=== PATIENT | male | born 1990 | race African-American/Black ===

== ENCOUNTER 2020-11-08 15:33 | Emergency (ER) | payer BC, SELFPAY ==
[2020-11-08 15:41] VITALS: BP 157/72; PULSE 63; RESP 16; TEMP 36.7; O2SAT 99
--- NOTE | 2020-11-08 16:06 | ED.GENADULT ---
HPI - General Adult History of Present Illness HPI narrative: 30 yo male presents to the ED with chief complaint of itching. He reports that while at work today he got some fiberglass on his chest. Since that time he has developed itching and irritation of the skin. He has showered and changed his clothes. No rash. No other symptoms. Related Data Allergies Allergy/AdvReac Type Severity Reaction Status Date / Time No Known Allergies Allergy Verified 11/08/20 16:08 Review of Systems Review of Systems: All systems reviewed & are unremarkable except as noted in HPI and below [facility] Social History Social History (Updated 11/16/20 @ 13:51 by Bandar Seay MD) Smoking status: Never smoker Exam Const: General: healthy appearing, no acute distress and alert Orientation/consciousness: patient oriented x3 HENMT: Head: normal to inspection Neck: Neck: normal visual inspection and no lymphadenopathy Chest: Chest palpation & inspection: no tenderness Resp: Effort & Inspection: normal respiratory effort Auscultation: clear to auscultation bilaterally, no rales, no rhonchi and no wheezes Cardio: Jugular venous distension: no JVD Rate: regular rate Rhythm: regular rhythm Heart sounds: no murmurs GI: Inspection: non-distended GI Palp: Yes Soft to palpation and No Tenderness to palpation present (GI) Skin: General skin exam: normal color Rashes: no rashes Neuro: General: patient oriented x3 and moves all extremities Speech: normal speech Extrem: General: no edema Psych: Appearance: well kempt Affect: normal affect Course Vital Signs Vital signs: Vital Signs Temperature 36.7 C 11/08/20 15:41 Pulse Rate 63 11/08/20 15:41 Respiratory Rate 16 11/08/20 15:41 Blood Pressure 157/72 H 11/08/20 15:41 Pulse Oximetry 99 11/08/20 15:41 Temperature 36.7 C 11/08/20 15:41 Pulse Rate 63 11/08/20 15:41 Respiratory Rate 16 11/08/20 15:41 Blood Pressure 157/72 H 11/08/20 15:41 Pulse Oximetry 99 11/08/20 15:41 Medical Decision Making MDM Narrative Medical decision making narrative: No significant findings on exam. I will prescribe a short course of steroids, which hopefully will provide some symptomatic relief while to fibers work their way out. Medical Records Medical records reviewed: Yes I reviewed the external patient's medical records. Vital Signs Vital Signs: Vital Signs Temperature 36.7 C 11/08/20 15:41 Pulse Rate 63 11/08/20 15:41 Respiratory Rate 16 11/08/20 15:41 Blood Pressure 157/72 H 11/08/20 15:41 Pulse Oximetry 99 11/08/20 15:41 Temperature 36.7 C 11/08/20 15:41 Pulse Rate 63 11/08/20 15:41 Respiratory Rate 16 11/08/20 15:41 Blood Pressure 157/72 H 11/08/20 15:41 Pulse Oximetry 99 11/08/20 15:41 Discharge Plan Discharge Clinical Impression: Contact dermatitis Patient Disposition: Home, Self-Care Condition: Stable Instructions: Contact Dermatitis (ED) Prescriptions: New prednisone 20 mg tablet 20 mg PO DAILY Qty: 5 RF: 0 Follow-up/Referrals: PHYSICIAN NOT ON STAFF,NONSTAFF [Primary Care Provider] - Stand Alone Forms: Work/School Release IP
[2020-11-08] MEDS: predniSONE 20 MG TABLET PO (16:40)
[2020-11-08] MEDS: LORATADINE 10 MG TABLET PO (16:40)
== END 2020-11-08 17:13 | disposition home or self-care (01) ==
PROVIDERS: Emergency Provider Emergency Medicine
DX: L25.9 Unspecified contact dermatitis, unspecified cause (principal)
CPT/HCPCS: 99283; A9270; J7512

== ENCOUNTER 2021-01-30 17:07 | Emergency (ER) | payer MEDICAID, SELFPAY ==
--- NOTE | ~2021-01-30 | XR_ITS ---
XR chest 2V DATE: 01/30/2021 18:31 INDICATION: Cough, congestion TECHNIQUE: PA and lateral views COMPARISON: None FINDINGS: Heart size is normal. No hilar or mediastinal enlargement. No pulmonary infiltrate or conso lidation, pleural effusion or pulmonary vascular congestion or pneumothorax. Included skeletal structures are unremarkable. IMPRESSION: Negative chest Reviewed, dictated and finalized at location A. IMPRESSION: Negative chest
[2021-01-30 17:19] VITALS: BP 145/80; PULSE 63; RESP 16; TEMP 36.2; O2SAT 99
--- NOTE | 2021-01-30 18:47 | ED.GENADULT ---
HPI - General Adult General Chief complaint: Upper Respiratory Infection Stated complaint: COLD Source: patient and RN notes reviewed History of Present Illness HPI narrative: Patient is a 30 y/o male complaining of mild to moderate cough for last 3 days. He states that he is coughing up some mucus. There is no known alleviating or exacerbating factor. He took Mucinex, which did not seem to help. He also has a running nose. He has no fever. He states that he was told by his work that he needs a COVID test. Related Data Allergies Allergy/AdvReac Type Severity Reaction Status Date / Time No Known Allergies Allergy Verified 01/30/21 17:47 Review of Systems Constitutional: Constitutional: Denies chills, Denies fever(s), Denies headache(s) and Denies weakness Eyes: Eyes: Denies blurry vision ENT: Denies headache(s), Reports nasal discharge and Denies neck pain Cardiovascular: Cardiovascular: Denies chest pain and Denies dyspnea Respiratory: Respiratory: Reports cough and Denies dyspnea Gastrointestinal: Gastrointestinal: Denies abdominal pain, Denies diarrhea, Denies nausea and Denies vomiting Genitourinary: Genitourinary: Denies hematuria and Denies dysuria Musculoskeletal: Musculoskeletal: Denies back pain and Denies neck pain Neurologic: Denies headache(s) and Denies weakness [facility] Social History Social History Smoking status: Never smoker Exam Const: General: no acute distress and well developed Orientation/consciousness: oriented to person, oriented to place, oriented to time and patient oriented x3 HENMT: Head: normocephalic Ears: external ears normal General nose exam: Normal external nose present Eyes: General: appearance normal, both eyes and all related structures Conjunctivae: conjunctivae normal Neck: Neck: normal visual inspection and full ROM Chest: Chest palpation & inspection: normal inspection of the chest and no tenderness Resp: Effort & Inspection: normal respiratory effort Auscultation: clear to auscultation bilaterally Cardio: Rate: regular rate Rhythm: regular rhythm GI: GI Palp: No abdominal tenderness and Yes Soft to palpation Skin: General skin exam: normal color and turgor normal Neuro: General: oriented to person, oriented to place, oriented to time and patient oriented x3 Cognition (Neuro): normal cognition Extrem: General: normal to inspection, full ROM and no pedal edema Psych: Appearance: grossly normal Mental Status: mental status grossly normal Affect: normal affect Course Vital Signs Vital signs: Vital Signs Temperature 36.2 C L 01/30/21 17:19 Pulse Rate 63 01/30/21 17:19 Respiratory Rate 16 01/30/21 17:19 Blood Pressure 145/80 H 01/30/21 17:19 Pulse Oximetry 99 01/30/21 17:19 Temperature 36.2 C L 01/30/21 17:19 Pulse Rate 66 01/30/21 19:55 Respiratory Rate 16 01/30/21 19:55 Blood Pressure 122/63 01/30/21 19:55 Pulse Oximetry 99 01/30/21 19:55 Medical Decision Making Vital Signs Vital Signs: Vital Signs Temperature 36.2 C L 01/30/21 17:19 Pulse Rate 63 01/30/21 17:19 Respiratory Rate 16 01/30/21 17:19 Blood Pressure 145/80 H 01/30/21 17:19 Pulse Oximetry 99 01/30/21 17:19 Temperature 36.2 C L 01/30/21 17:19 Pulse Rate 66 01/30/21 19:55 Respiratory Rate 16 01/30/21 19:55 Blood Pressure 122/63 01/30/21 19:55 Pulse Oximetry 99 01/30/21 19:55 Lab Data Result diagrams: 01/30/21 18:53 01/30/21 18:53 Labs: Lab Results 01/30/21 01/30/21 01/30/21 Range/Units 18:53 18:53 19:50 WBC 8.8 (4.5-10.0) K/mm3 RBC 5.21 (4.6-6.20) M/mm3 Hgb 16.4 (14.0-18.0) g/dL Hct 47.2 (42.0-52.0) % MCV 90.6 (80-100) fl MCH 31.5 (26-34) pg MCHC 34.7 (32-36) g/dl RDW 13.0 (11.5-14.5) % Plt Count 276 (150-375) k/mm3 MPV 9.8 (7.4-10.4) fl Immature Gran % (Auto) 0.2
[2021-01-30 19:02] LABS: Basophils Absolute Auto 0.1 K/mm3 (0.0-0.1); Basophils Percent Auto 0.6 % (0.2-1.2); Eosinophils Absolute Auto 0.2 K/mm3 (0-0.3); Eosinophils Percent Auto 2.2 % (0-4.4); Hematocrit 47.2 % (42.0-52.0); Hemoglobin 16.4 g/dL (14.0-18.0); Immature Granulocyte Absolute 0.02 K/mm3 (0.00-0.031); Immature Granulocyte Percent A 0.2 % (0-0.5); Lymphocytes Absolute Auto 2.25 K/mm3 (0.9-3.2); Lymphocytes Percent Auto 25.5 % (18.3-44.2); Mean Corpuscular HGB Conc 34.7 g/dl (32-36); Mean Corpuscular Hemoglobin 31.5 pg (26-34); Mean Corpuscular Volume 90.6 fl (80-100); Mean Platelet Volume 9.8 fl (7.4-10.4); Monocytes Absolute Auto 0.9 K/mm3 (0.1-0.6); Monocytes Percent Auto 9.8 % (2.6-8.5); Neutrophils Absolute Auto 5.5 K/mm3 (1.3-6.7); Neutrophils Percent Auto 61.7 % (45.5-73.1); Platelet Count Result 276 k/mm3 (150-375); Red Blood Count 5.21 M/mm3 (4.6-6.20); White Blood Count 8.8 K/mm3 (4.5-10.0)
--- NOTE | 2021-01-30 19:20 | PC.NURSE ---
assumed care of patient waiting lab results
[2021-01-30 19:24] LABS: Alanine Aminotransferase 67 U/L (4-50); Alkaline Phosphatase 67 U/L (38-126); Anion Gap 11 mmol/L (8-16); Aspartate Amino Transferase 45 U/L (17-59); Bilirubin,Total 0.8 mg/dL (0.2-1.3); Blood Urea Nitrogen 14 mg/dL (9-20); Calcium 10.5 mg/dL (8.4-10.2); Carbon Dioxide 29 mmol/L (22-30); Chloride 104 mmol/L (98-107); Estimated CRCL calculation 89 ml/min; Estimated Glomerular Filt Rate > 60; Glucose 96 mg/dL (65-110); Potassium 4.2 mmol/L (3.4-5.0); Sodium 144 mmol/L (137-145)
[2021-01-30 19:30] LABS: Albumin Level 5.3 g/dL (3.5-5.1)
[2021-01-30 19:55] VITALS: BP 122/63; PULSE 66; RESP 16; O2SAT 99
[2021-01-31 17:30] LABS: SARS-CoV-2 RNA PCR Negative
== END 2021-01-30 19:58 | disposition home or self-care (01) ==
PROVIDERS: Emergency Provider Emergency Medicine
DX: Z20.822 Contact with and (suspected) exposure to COVID-19 (principal); J06.9 Acute upper respiratory infection, unspecified
CPT/HCPCS: 36415; 71046; 80053; 85025; 99283; C9803; U0003; U0005

== ENCOUNTER 2023-03-29 17:36 | Emergency (ER) | payer BC, MEDICAID, SELFPAY ==
[2023-03-29 18:04] VITALS: BP 134/85; PULSE 92; RESP 20; TEMP 37.7; O2SAT 98
[2023-03-29 18:45] LABS: Influenza A QL RT-PCR Negative (Negative); Influenza B QL RT-PCR Positive (Negative); RSV RNA, RT-PCR Negative (Negative); SARS-CoV-2 RNA PCR Negative (Negative)
--- NOTE | 2023-03-29 20:44 | ED.URI ---
HPI - URI/Sore Throat General Chief Complaint: Upper Respiratory Infection Stated Complaint: body aches, chills, cold symptoms Time Seen by Provider: 03/29/23 19:53 History of Present Illness HPI Narrative: Patient is a 32-year-old male presenting with body aches, cough. Patient states that the for last several days he has had diffuse body aches, chills, cough. He has had a sore throat as well. He has had decreased appetite but no vomiting. No chest pain or abdominal pain. No shortness of breath or leg swelling. States that he has been using Tylenol, ibuprofen, Mucinex with minimal relief. Related Data Allergies Allergy/AdvReac Type Severity Reaction Status Date / Time No Known Allergies Allergy Verified 01/30/21 17:47 Review of Systems Review of Systems: All systems reviewed & are unremarkable except as noted in HPI and below PMFSH Social History Social History Smoking status: Never smoker Exam Narrative: GENERAL: Uncomfortable appearing but nontoxic, pleasant and cooperative HEAD: Normocephalic, atraumatic. EYES: PERRLA and EOMI. ENT: Mucous membranes moist, posterior pharynx is erythematous, no exudates, uvula is midline, no tonsillar hypertrophy. NECK: Supple. CHEST: Clear to auscultation. No respiratory distress. HEART: Regular rate and rhythm. ABDOMEN: Soft, nontender, nondistended EXTREMITIES: Normal range of motion. No edema. SKIN: Warm, dry, no rash. NEURO: Alert and oriented x3. PSYCH: Normal mood and affect. Course Vital Signs Vital signs: Vital Signs Temperature 99.9 F H 03/29/23 18:04 Pulse Rate 92 03/29/23 18:04 Respiratory Rate 20 03/29/23 18:04 Blood Pressure 134/85 03/29/23 18:04 Pulse Oximetry 98 03/29/23 18:04 Temperature 99.9 F H 03/29/23 18:04 Pulse Rate 98 03/29/23 21:13 Respiratory Rate 20 03/29/23 21:13 Blood Pressure 138/78 03/29/23 21:13 Pulse Oximetry 98 03/29/23 21:13 MDM - URI/Sore Throat MDM Narrative Medical decision making narrative: patient is a 32-year-old male presenting with URI symptoms. vitals within normal limits. Exam remarkable for the above. Patient is positive for influenza B. discussed appropriate supportive care with adequate hydration, Tylenol, ibuprofen. Advised PCP follow-up. Appropriate return precautions given. Discharged in stable condition. Differential Diagnosis Differential diagnosis: Likely upper respiratory infection, viral infection, influenza and pharyngitis Lab Data Attestation: I reviewed the patient's lab results. Labs: Lab Results 03/29/23 Range/Units 18:04 Influenza A (RT-PCR) Negative (Negative) Influenza B (RT-PCR) Positive A (Negative) RSV (RT-PCR) Negative (Negative) SARS-CoV-2 RNA (RT-PCR) Negative (Negative) Critical Care Time Critical Care Time Critical Care Time: No Discharge Plan Discharge Clinical Impression: Influenza Patient Disposition: Home, Self-Care Condition: Stable Instructions: Antibiotic Form, Influenza (ED) Additional Instructions: You are positive for influenza B today. Please use Tylenol and ibuprofen for pain control and fevers. Please make sure to drink plenty of fluids to maintain hydration. Please follow-up with primary care. If your symptoms worsen or other concerning symptoms arise, please return to the ER. Prescriptions: New acetaminophen [Tylenol Extra Strength] 500 mg tablet 1,000 mg PO Q6H PRN (Reason: fever or pain) Qty: 60 0RF ibuprofen 800 mg tablet 800 mg PO TID PRN (Reason: pain) Qty: 30 0RF No Action prednisone 20 mg tablet 20 mg PO DAILY Qty: 5 0RF Follow-up/Referrals: Devan Blanco MD [Physician] - Stand Alone Forms: Work/School Release IP
[2023-03-29] MEDS: KETOROLAC 30 MG/ML VIAL (*BKC) IM (20:54)
[2023-03-29 21:13] VITALS: BP 138/78; PULSE 98; RESP 20; O2SAT 98
== END 2023-03-29 21:14 | disposition home or self-care (01) ==
PROVIDERS: Emergency Provider Emergency Medicine
DX: J10.1 Influenza due to other identified influenza virus with other respiratory manifestations (principal); Z20.822 Contact with and (suspected) exposure to COVID-19
CPT/HCPCS: 87637; 96372; 99283; J1885

== ENCOUNTER 2024-04-12 16:18 | Outpatient (CLI) | payer BC, SELFPAY ==
[2024-04-12 17:24] LABS: Basophils Percent Auto 0.1 % (0.2-1.2); Eosinophils Absolute Auto 0.1 K/mm3 (0-0.3); Eosinophils Percent Auto 0.5 % (0-4.4); Hematocrit 48.4 % (42.0-52.0); Immature Granulocyte Absolute 0.05 K/mm3 (0.00-0.031); Immature Granulocyte Percent A 0.5 % (0-0.5); Lymphocytes Absolute Auto 1.74 K/mm3 (0.9-3.2); Lymphocytes Percent Auto 16.3 % (18.3-44.2); Mean Corpuscular HGB Conc 33.1 g/dl (32-36); Mean Corpuscular Volume 90.8 fl (80-100); Mean Platelet Volume 10.3 fl (7.4-10.4); Monocytes Absolute Auto 0.9 K/mm3 (0.1-0.6); Neutrophils Percent Auto 74.6 % (45.5-73.1); Platelet Count Result 279 k/mm3 (150-375); Red Blood Count 5.33 M/mm3 (4.6-6.20); Red Cell Distribution Width 13.6 % (11.5-14.5); White Blood Count 10.7 K/mm3 (4.5-10.0)
[2024-04-12 17:34] LABS: Alanine Aminotransferase 59 U/L (6-50); Albumin Level 5.1 g/dL (3.5-5.1); Alkaline Phosphatase 66 U/L (38-126); Anion Gap 7 mmol/L (4-12); Aspartate Amino Transferase 40 U/L (17-59); Bilirubin,Total 1.1 mg/dL (0.2-1.3); Blood Urea Nitrogen 18 mg/dL (9-20); Carbon Dioxide 30 mmol/L (22-30); Chloride 104 mmol/L (98-107); Cholesterol 231 mg/dL (0-200); Estimated Glomerular Filt Rate > 60; Glucose 102 mg/dL (65-110); HDL Direct 54 mg/dL; Potassium 4.2 mmol/L (3.4-5.0); Sodium 141 mmol/L (137-145); Triglycerides 89 mg/dL (<150)
[2024-04-12 17:45] LABS: Add Urine Microscopic? YES; Appearance Urine Clear (Clear); Bacteria Urine None Seen /hpf; Bilirubin Urine Negative (Negative); Blood Urine Negative (Negative); Color Urine Dark Yellow (Yellow); Glucose Urine UA Negative (Negative); Hyaline Casts Urine Present /lpf; Ketones Urine 1+ mg/dL (Negative); Leukocyte Esterase Ur Negative LEU/UL (Negative); Nitrate Urine Negative (Negative); Protein Urine Trace mg/dL (Negative); RBC Urine 0-2 /hpf (0-2); Specific Grav Ur 1.035 (1.001-1.035); Squamous Epithelial Cell Urine None Seen /hpf (Few); WBC Urine 0-5 /hpf (0-3)
[2024-04-12 17:46] LABS: LDL Cholesterol Direct 141 mg/dL
== END 2024-04-12 16:19 | disposition home or self-care (01) ==
LOC: ANHLAB 16:22
PROVIDERS: Visit Provider Nurse Practitioner
DX: Z00.00 Encounter for general adult medical examination without abnormal findings (principal); Z13.21 Encounter for screening for nutritional disorder; Z83.3 Family history of diabetes mellitus; F32.9 Major depressive disorder, single episode, unspecified; R53.81 Other malaise; M25.561 Pain in right knee
CPT/HCPCS: 36415; 80053; 80061; 81001; 83036; 84443; 85025

== ENCOUNTER 2024-05-01 17:55 | Emergency (ER) | payer BC, SELFPAY ==
[2024-05-01 17:57] VITALS: BP 145/70; PULSE 95; RESP 20; TEMP 37.2; O2SAT 100
--- OUTSIDE RECORDS SUMMARY | 2024-05-01 17:57 | XMS_ITS | CONTINUITY OF CARE DOCUMENT ---
Author Name beverly paul Address Unknown Organization [facility] Address [address] [place] [address] Phone [phone] Care Team Providers Care Transportation Aid Name Role Phone Wicho Painter MD Unavailable [phone] Wicho Painter MD Unavailable [phone] INSURANCE PROVIDERS Payer name Policy type / Coverage type [place] red constitution party ID [facility] Medicaid [id number]
--- OUTSIDE RECORDS SUMMARY | 2024-05-01 17:57 | XMS_ITS | Continuity of Care Document ---
Author Organization [facility] Address [address] [place] [address] [place] [address] Phone Care Team Providers Care Vegetable Harvest Machine Operator Name Role Phone Devon Padilla MD Unavailable Unavailable Advance Directives Directive Yes / No Effective Date File Name No Information Encounters Encounter Description Practice Location Reason(s) For Visit Diagnoses Date Provider Providers Copied on Encounter [facility], [address] [place], [id number], [place] tel:[phone] [facility] No Information Randy Osorio. [address], [id number], [place]. tel:[phone] Family History Family Member Type Diagnosis Age At Onset No Information Payers Payer name Insurance type Covered democrat ID Authoriza tion(s) No Information Social History Type Description Quantity Date Captured Comments Sex Male Smoking Status No Information Chief Complaint And Reason For Visit No Information Plan Of Treatment Date Type Action Status No Information History Of Present Illness Encounter Date Complaint History Of Prese nt Illness No Information Instructions Date Instruction Additional Infor mation No Information Assessments Type Assessment Date No Information
--- OUTSIDE RECORDS SUMMARY | 2024-05-01 18:24 | XMS_ITS | Continuity of Care Document ---
Author Organization [facility] Address [address] [place] [address] Phone Care Team Providers Care Administrative Support Coordinator Name Role Phone Devon Padilla MD Unavailable Unavailable Advance Directives Directive Yes / No Effective Date File Name No Information Encounters Encounter Description Practice Location Reason(s) For Visit Diagnoses Date Provider Providers Copied on Encounter [facility], [address] [place], [id number], [place] tel:[phone] [facility] No Information Randy Osorio. [address] [place], [id number], [place]. tel:[phone] Family History Family Member Type Diagnosis Age At Onset No Information Payers Payer name Insurance type Covered green party ID Authoriza tion(s) No Information Social History [...]
--- OUTSIDE RECORDS SUMMARY | 2024-05-01 18:24 | XMS_ITS | CONTINUITY OF CARE DOCUMENT ---
Author Name beverly paul Address Unknown Organization [facility] Address [address] [place] [address] Phone [phone] Care Team Providers Care Snow Remover Name Role Phone Wicho Painter MD Unavailable [phone] Wicho Painter MD Unavailable [phone] INSURANCE PROVIDERS Payer name Policy type / Coverage type [place] red libertarian ID [facility] Medicaid [id number]
[2024-05-01 18:50] LABS: Influenza A QL RT-PCR Positive (Negative); Influenza B QL RT-PCR Negative (Negative); RSV RNA, RT-PCR Negative (Negative); SARS-CoV-2 RNA PCR Negative (Negative)
--- NOTE | 2024-05-01 19:15 | ED_ITS ---
HPI - URI/Sore Throat General Chief Complaint: Upper Respiratory Infection Stated Complaint: COUGH,CONGESTION,BODY ACHES Time Seen by Provider: 05/01/24 18:15 Source: patient Mode of arrival: ambulatory Limitations: no limitations History of Present Illness HPI Narrative: This is a 33 year old male that presents to the emergency department for cold symptoms. Present over the last couple of days. Reports fever, cough, congestion, myalgias. Related Data Allergies Allergy/AdvReac Type Severity Reaction Status Date / Time No Known Allergies Allergy Verified 05/01/24 17:56 Review of Systems Review of Systems: CONSTITUTIONAL: Reports fever ENT: Reports rhinorrhea, congestion, sore throat CARDIOVASCULAR: Denies chest pain RESPIRATORY: Reports cough All systems reviewed & are unremarkable except as noted in HPI and below PMFSH Past Medical History Medical History (Updated 05/01/24 @ 19:22 by Sofi Mcconnell PA-C) No active medical problems Social History Social History Smoking status: Never smoker Exam Narrative: GENERAL: Well-appearing, well-nourished, and in no acute distress. HEAD: Normocephalic, atraumatic. EYES: EOMI. ENT: Nares clear, no rhinorrhea or epistaxis. Mucous membranes moist. Oropharynx without tonsillar hypertrophy exudate or other lesions. Bilateral TMs pearly sherman non-bulging NECK: Supple. No adenopathy or masses. CHEST: Clear to auscultation. No respiratory distress. No wheezes rales or rhonchi HEART: Regular rate and rhythm. No murmur heard. Normal peripheral pulses. EXTREMITIES: Normal range of motion. No edema. SKIN: Warm, dry, no rash. NEURO: No focal deficits. Alert and oriented x3. PSYCH: Normal mood and affect Course Course Emergency Course: Patient updated on his workup and agrees with plan of care Vital Signs Vital signs: Vital Signs Temperature 99 F 05/01/24 17:57 Pulse Rate 95 05/01/24 17:57 Respiratory Rate 20 05/01/24 17:57 Blood Pressure 145/70 H 05/01/24 17:57 Pulse Oximetry 100 05/01/24 17:57 Oxygen Delivery Room Air 05/01/24 17:57 Temperature 99 F 05/01/24 17:57 Pulse Rate 95 05/01/24 17:57 Respiratory Rate 20 05/01/24 17:57 Blood Pressure 145/70 H 05/01/24 17:57 Pulse Oximetry 100 05/01/24 17:57 Oxygen Delivery Room Air 05/01/24 17:57 MDM - URI/Sore Throat MDM Narrative Medical decision making narrative: Patient presents to the emergency department for cold symptoms present over the last several days. Patient is afebrile and nontoxic appearing. Lungs are clear on exam. Oxygen saturation 100% on room air. Patient is influenza A positive. Will be started on Tamiflu. He was given warnings to return to the ER Differential Diagnosis Differential diagnosis: Likely upper respiratory infection, viral infection, bronchitis, influenza and other (covid) Lab Data Attestation: I reviewed the patient's lab results. Labs: Lab Results 05/01/24 Range/Units 18:08 Influenza A (RT-PCR) Positive A (Negative) Influenza B (RT-PCR) Negative (Negative) RSV (RT-PCR) Negative (Negative) SARS-CoV-2 RNA (RT-PCR) Negative (Negative) Critical Care Time Critical Care Time Critical Care Time: No Discharge Plan Discharge Clinical Impression: Influenza A Patient Disposition: Home, Self-Care Condition: Stable Instructions: Influenza (ED) Additional Instructions: Return to the emergency department for worsening symptoms, or any other concerns Remain well-hydrated, get plenty of rest. Take Tylenol or Motrin [id number] for pain as needed. Flonase for nasal congestion. Zyrtec for runny nose. Lozenges or Chloraseptic spray for sore throat. Take Oseltamivir as prescribed Follow up with primary care doctor Patient Language: Bolivian Prescriptions: New oseltamivir 75 mg capsule 75 mg PO Q12H 5 Days Qty: 10 0RF No Action prednisone 20 mg tablet 20 mg PO DAILY Qty: 5 0RF acetaminophen [Tylenol Extra Strength] 500 mg tablet 1,000 mg PO Q6H PRN (Reason: fever or pain) Qty: 60 0RF ibuprofen 800 mg tablet 800 mg PO TID PRN (Reason: pain) Qty: 30 0RF Follow-up/Referrals: Devan Blanco MD [Physician] -
--- NOTE | 2024-05-01 19:15 | PC.NURSE ---
Report received from MOMO Barnes. Assumed care of patient at this time.
[2024-05-01] MEDS: IBUPROFEN 600 MG TABLET PO (19:26)
== END 2024-05-01 19:30 | disposition home or self-care (01) ==
PROVIDERS: Emergency Provider Physician Assistant
DX: J10.1 Influenza due to other identified influenza virus with other respiratory manifestations (principal); Z20.822 Contact with and (suspected) exposure to COVID-19
CPT/HCPCS: 87637; 99283; A9270

== ENCOUNTER 2024-09-22 05:49 | Emergency (ER) | payer SELFPAY ==
[2024-09-22 05:52] VITALS: BP 151/75; PULSE 57; RESP 16; TEMP 36.2; O2SAT 97
[2024-09-22 05:56] VITALS: BP 151/75; PULSE 62; RESP 16; O2SAT 100
[2024-09-22 06:01] VITALS: BP 138/81; PULSE 65; RESP 22; O2SAT 100
--- NOTE | 2024-09-22 06:12 | ED.GENADULT ---
HPI - General Adult General Chief complaint: Back Pain/Injury Stated complaint: back pain Time Seen by Provider: 09/22/24 06:05 History of Present Illness HPI narrative: 34-year-old male present to the emergency department for evaluation for lower back pain. Patient states that he was pushing a metal beam at work when he felt a pinch in his back. Patient states he was not lifting anything. Patient denies any numbness or weakness, denies any change in bowel or bladder habits. Patient has not take anything for pain control. Patient was having back pain yesterday got ready to go to work today was still having back pain. Patient called work in they told needed to be evaluated. Related Data Allergies Allergy/AdvReac Type Severity Reaction Status Date / Time No Known Allergies Allergy Verified 09/22/24 05:56 Review of Systems Review of Systems: All systems reviewed & are unremarkable except as noted in HPI and below PMFSH Past Medical History Medical History (Updated 09/22/24 @ 06:13 by Jovanny Lugo MD) No active medical problems Social History Social History Smoking status: Never smoker Exam Narrative: APPEARANCE: Well appearing, no pain, no distress, well-nourished. HEAD: normocephalic, atraumatic. EYES: PERRLA/EOMI, conjunctivae clear. NOSE: Normal no drainage EARS:TMS clear with good light reflex. THROAT: Pharynx clear, no exudate. NECK: Supple. No adenopathy, no masses. RESPIRATORY: Airway patent, respirations nonlabored. Clear to auscultation bilaterally, no rales, rhonchi, wheezing. CARDIOVASCULAR: Regular rate and rhythm without murmurs rubs or gallops. ABDOMINAL: Soft, nontender, nondistended, normal bowel sounds MUSCULOSKELETAL: Bilateral paraspinal tenderness to palpation, no midline tenderness to palpation NEURO: Alert. Cranial nerves II through XII intact. Good gait. Good coordination SKIN: Warm, dry. Normal Color Course Vital Signs Vital signs: Vital Signs Temperature 97.2 F L 09/22/24 05:52 Pulse Rate 57 L 09/22/24 05:52 Respiratory Rate 16 09/22/24 05:52 Blood Pressure 151/75 H 09/22/24 05:52 Pulse Oximetry 97 09/22/24 05:52 Oxygen Delivery Room Air 09/22/24 05:52 Temperature 98.6 F 09/22/24 06:33 Pulse Rate 62 09/22/24 06:33 Respiratory Rate 20 09/22/24 06:33 Blood Pressure 142/82 H 09/22/24 06:33 Pulse Oximetry 100 09/22/24 06:33 Oxygen Delivery Room Air 09/22/24 05:52 Medical Decision Making MDM Narrative Medical decision making narrative: [age] old male presenting to the emergency department for evaluation for muscular back pain. Patient has no neurologic symptoms. Patient was provided medication for pain control. Patient was also requesting a work note. Differential Diagnosis Differential Diagnosis: Muscular strain, back fracture cauda equinus syndrome Vital Signs Vital Signs: Vital Signs Temperature 97.2 F L 09/22/24 05:52 Pulse Rate 57 L 09/22/24 05:52 Respiratory Rate 16 09/22/24 05:52 Blood Pressure 151/75 H 09/22/24 05:52 Pulse Oximetry 97 09/22/24 05:52 Oxygen Delivery Room Air 09/22/24 05:52 Temperature 98.6 F 09/22/24 06:33 Pulse Rate 62 09/22/24 06:33 Respiratory Rate 20 09/22/24 06:33 Blood Pressure 142/82 H 09/22/24 06:33 Pulse Oximetry 100 09/22/24 06:33 Oxygen Delivery Room Air 09/22/24 05:52 Discharge Plan Discharge Clinical Impression: Back pain Patient Disposition: Home Condition: Stable Instructions: Antibiotic Form, Back Pain (ED) Additional Instructions: Scheduled ibuprofen for pain control. Flexeril for muscle spasm. Erin as needed for additional pain control. Have close follow-up with your primary care physician. 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
[2024-09-22 06:16] VITALS: BP 142/82; PULSE 69; RESP 18; O2SAT 100
[2024-09-22] MEDS: CYCLOBENZAPRINE HCL 10 MG TABLET PO (06:19)
[2024-09-22] MEDS: KETOROLAC 30 MG/ML VIAL (*BKC) IM (06:21)
[2024-09-22 06:33] VITALS: BP 142/82; PULSE 62; RESP 20; TEMP 37; O2SAT 100
== END 2024-09-22 06:33 | disposition home or self-care (01) ==
LOC: ANHED 06:20
PROVIDERS: Emergency Provider Emergency Medicine
DX: S39.92XA Unspecified injury of lower back, initial encounter (principal); X50.0XXA Overexertion from strenuous movement or load, initial encounter
CPT/HCPCS: 96372; 99283; A9270; J1885

== ENCOUNTER 2025-01-20 07:12 | Emergency (ER) | payer SELFPAY ==
--- NOTE | ~2025-01-20 | CT_ITS ---
CT abdomen pelvis w con Clinical History: RLQ pain-pulling/lifting injury . Comparison: None Technique: Axial images lung bases to symphysis pubis IV contrast information not in PACS Coronal, sagittal reformats CT images acquired with automatic exposure control for dose reduction DLP: 486 mGy-cm Findings: Lung bases: Clear. Visualized heart and pericardium: Unremarkable. Liver: Steatosis. A few hypodense foci too small to characterize. 2 small enhancing foci left lobe. Gallbladder: Unremarkable. Spleen: Unremarkable. Pancreas: Unremarkable. Adrenal glands: Unremarkable. Kidneys: Right kidney- No hydronephrosis. No renal stones. Left kidney- No hydronephrosis. No renal stones. Distal esophagus/stomach: Unremarkable. Small bowel loops: Normal caliber and wall thickness. Colon: Normal caliber and wall thickness. Normal RLQ appendix. Nodes: No enlarged nodes. Peritoneum: No ascites. No free air. Urinary bladder: Mild wall thickening. Prostate: Unremarkable. Bones: No acute bony abnormality. Soft tissues: Small umbilical hernia with fat. Aorta: No aneurysm or dissection. IVC: Unremarkable. Main portal vein/SMV/splenic vein: Patent. IMPRESSION: 1. No acute findings. Reviewed, dictated and finalized at location R. IMPRESSION: 1. No acute findings.
--- OUTSIDE RECORDS SUMMARY | 2025-01-20 07:17 | XMS_ITS | Clinical Summary ---
Author Organization [facility] Address [address] [facility] [place] [address] Phone Care Team Providers Care Nutrition Tech Name Role Phone Unavailable Primary Care Provider Unavailabl e Allergies No known active allergies Medications naproxen (NAPROSYN) 500 mg tablet Take 1 Tablet (500 mg) by mouth every 12 hours as needed for Pain, Moderate. 20 Tablet 07/12/2016 Active Social History Tobacco Use Types Packs/Day Years Used Date Smoking Tobacco: Never Alcohol Use Standard Drinks/Week Comments No 0 (1 standard drink = 0.6 oz pur e alcohol) Sex and Gender Information Value Date Recorded Sex Assigned at Not on file Legal Sex Male 1:54 PM CDT Gender Identity Not on file Sexual Orientation Not on file Last Filed Vital Signs Vital Sign Reading Time Taken Comments Blood Pressure 129/77 07/11/2016 10:05 PM CDT Pulse - - Temperature 36.7 C (98.1 F) 07/11/2016 10:05 PM CDT Respiratory Rate 16 07/11/2016 10:05 PM CDT Oxygen Saturation 97% 07/11/2016 10:05 PM CDT Inhaled Oxygen Concentration - - Weight 88.9 kg (196 lb) 07/11/2016 10:05 PM CDT Height 165.1 cm (5' 5) 07/11/2016 10:05 PM CDT Body Mass Index 32.62 07/11/2016 10:05 PM CDT Plan of Treatment Health Maintenance Due Date Last Done Comments DTAP/TDAP/TD VACCINES (1 - Tdap) 2009 HEPATITIS B VACCINES (1 of 3 - 19+ 3-dose series) 08/29 HPV VACCINES (1 - 3-dose SCDM series) 2017 INFLUENZA VACCINE (#1) 2024 Insurance BCBS BLUE ACCESS/TRUE BLUE PPO BCBS BLUE ACCESS/TRUE BLUE PPO BCBS BLUE ACCESS CHOICE
[2025-01-20 07:25] VITALS: BP 134/66; PULSE 57; RESP 20; TEMP 36.8; O2SAT 100
[2025-01-20] MEDS: ONDANSETRON INJ 4 MG/2 ML VIAL IV PUSH (07:41)
[2025-01-20] MEDS: SODIUM CHLORIDE 0.9% IV 2,000 ML 999 ML IV CONT (07:41)
[2025-01-20] MEDS: HYDROmorphone HCL INJ (*CRX) 1 MG/ML SYR 0.5 MG IV PUSH (07:41)
--- NOTE | 2025-01-20 07:41 | ED_ITS ---
HPI - General Adult General Chief complaint: Abdominal Pain Stated complaint: abd pain Time Seen by Provider: 01/20/25 07:21 History of Present Illness HPI narrative: This is a 34-year-old male presenting with right lower quadrant pain. Patient was at work this morning pulling rebar. When he jerked on a piece of rebar he developed immediate pain in his right lower quadrant. He describes as a burning pain that is severe, nonradiating and constant. He has had 1 episode of nausea and vomiting. No diarrhea. No fevers chills chest pain difficulty breathing urinary symptoms chest pain. Related Data Allergies Allergy/AdvReac Type Severity Reaction Status Date / Time No Known Allergies Allergy Verified 01/20/25 07:32 [facility] Past Medical History Medical History No active medical problems Social History Social History Smoking status: Never smoker Exam 2 Narrative: APPEARANCE: patient appears uncomfortable Head: atraumatic. EYES: EOMI, NOSE: Atraumatic NECK: Trachea midline RESPIRATORY: No increased rate of breathing clear to auscultation CARDIOVASCULAR: RRR, no peripheral edema ABDOMINAL: Tenderness in the right lower quadrant with voluntary guarding, MUSCULOSKELETAl: No obvious deformities NEURO: Alert. Moving 4/4 extremities SKIN:: Warm, dry. Normal color PSYCHIATRIC: Normal affect Course Vital Signs Vital signs: Vital Signs Temperature 98.3 F 01/20/25 07:25 Pulse Rate 57 L 01/20/25 07:25 Respiratory Rate 20 01/20/25 07:25 Blood Pressure 134/66 01/20/25 07:25 Pulse Oximetry 100 01/20/25 07:25 Oxygen Delivery Room Air 01/20/25 07:25 Temperature 98.3 F 01/20/25 07:25 Pulse Rate 53 L 01/20/25 09:09 Respiratory Rate 20 01/20/25 09:09 Blood Pressure 130/84 01/20/25 09:09 Pulse Oximetry 100 01/20/25 09:09 Oxygen Delivery Room Air 01/20/25 07:25 Medical Decision Making [facility] Narrative Medical decision making narrative: -Course: 34-year-old male presenting with right lower quadrant pain. Patient was precipitated by pulling on a piece of rebar at work. Differential includes appendicitis versus muscle strain. CT abdomen pelvis showed a normal appendix. Patient's white count is equivocal. The rest was laboratory studies within normal limits. Patient was given pain medication and reassessed. Patient still appears very uncomfortable. 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 General surgery was consulted. General surgery evaluated the patient at bedside. They also reviewed the imaging with Dr. Vasquez. While the patient is centerless grinder tender, but they do not feel that this is acute appendicitis. They are agreeable to discharge the patient with strict return precautions. All these results were discussed with the patient including when to return to the ED. patient discharged. -DDX includes but is not limited to: Appendicitis, muscle strain, colitis, gallbladder disease Vital Signs Vital Signs: Vital Signs Temperature 98.3 F 01/20/25 07:25 Pulse Rate 57 L 01/20/25 07:25 Respiratory Rate 20 01/20/25 07:25 Blood Pressure 134/66 01/20/25 07:25 Pulse Oximetry 100 01/20/25 07:25 Oxygen Delivery Room Air 01/20/25 07:25 Temperature 98.3 F 01/20/25 07:25 Pulse Rate 53 L 01/20/25 09:09 Respiratory Rate 20 01/20/25 09:09 Blood Pressure 130/84 01/20/25 09:09 Pulse Oximetry 100 01/20/25 09:09 Oxygen Delivery Room Air 01/20/25 07:25 Lab Data 01/20/25 07:41 01/20/25 07:41 Labs: Lab Results 01/20/25 Range/Units 07:41 WBC 11.8 H (4.5-10.0) K/mm3 RBC 5.20 (4.6-6.20) M/mm3 Hgb 15.6 (14.0-18.0) g/dL Hct 47.1 (42.0-52.0) % MCV 90.6 (80-100) fl MCH 30.0 (26-34) pg MCHC 33.1 (32-36) g/dl RDW 13.7 (11.5-14.5) % Plt Count 287 (150-375) k/mm3 MPV 10.0 (7.4-10.4) fl Immature Gran % (Auto) 0.3 (0-0.5) % Neut % (Auto) 83.2 H (45.5-73.1) % Lymph % (Auto) 7.9 L (18.3-44.2) % [place] % (Auto) 7.3 (2.6-8.5) % Eos % (Auto) 1.0 (0-4.4) % Baso % (Auto) 0.3 (0.2-1.2) % Lymph # (Auto) 0.94 (0.9-3.2) K/mm3 [place] # (Auto) 0.9 H (0.1-0.6) K/mm3 Eos # (Auto) 0.1 (0-0.3) K/mm3 Baso # (Auto) 0.0 (0.0-0.1) K/mm3 Abs Immat Gran (auto) 0.04 H (0.00-0.031) K/mm3 Absolute Neuts (auto) 9.9 H (1.3-6.7) K/mm3 Absolute Nucleated RBC 0.000 (0.0-0.012) K/mm3 Nucleated RBC % 0.0 (0.0-0.2) % Sodium 136 L (137-145) mmol/L Potassium 4.2 (3.4-5.0) mmol/L Chloride 105 (98-107) mmol/L Carbon Dioxide 25 (22-30) mmol/L Anion Gap 6 (4-12) mmol/L BUN 19 (9-20) mg/dL Creatinine 1.03 (0.7-1.3) mg/dL Estim Creat Clear Calc Not Reportable Estimated GFR > 60 (59 - ) Glucose 110 (65-110) mg/dL Calcium 9.5 (8.4-10.2) mg/dL Total Bilirubin 0.5 (0.2-1.3) mg/dL AST 50 (17-59) U/L ALT 40 (6-50) U/L Alkaline Phosphatase 66 (38-126) U/L Total Protein 8.0 (6.3-8.2) g/dL Albumin 4.8 (3.5-5.1) g/dL Lipase 99 (23-300) U/L Urine Color Yellow (Yellow) Urine Appearance Clear (Clear) Urine pH 5.5 (5.0-9.0) Ur Specific [place] 1.025 (1.001-1.035) Urine Protein Negative (Negative) mg/dL Urine Glucose (UA) Negative (Negative) mg/dL Urine Ketones Trace H (Negative) mg/dL Ur Blood (Man) Negative (Negative) Urine Nitrate Negative (Negative) Urine Bilirubin Negative (Negative) Urine Urobilinogen 0.2 (<2.0) mg/dL Leukocyte Esterase Rfl Negative (Negative) LISA/UL Discharge Plan Discharge Clinical Impression: Abdominal pain, RLQ Patient Disposition: Home Condition: Stable Instructions: Antibiotic Form, Abdominal Pain (ED) Additional Instructions: You were seen emergency department for abdominal pain. Please use the medications prescribed for pain control. Like we discussed, it is possible that you have early appendicitis that is not yet showed up on her imaging. It is very important that if your right lower quadrant pain is getting worse, you develop fevers chills or worsening nausea vomiting white return to emergency department immediately for re-evaluation. Patient Language: Armenian Prescriptions: New ibuprofen 800 mg tablet 800 mg PO TID PRN (Reason: pain) 7 Days Qty: 21 0RF acetaminophen 500 mg tablet 1,000 mg PO TID PRN (Reason: iwona) 7 Days Qty: 42 0RF methocarbamol 750 mg tablet 1,500 mg PO TID Qty: 42 0RF No Action cyclobenzaprine 10 mg tablet 10 mg PO BID PRN (Reason: muscle spasm) Qty: 14 0RF hydrocodone-acetaminophen 5-325 mg tablet 1 tablet PO Q12H PRN (Reason: pain) Qty: 14 0RF prednisone 20 mg tablet 20 mg PO DAILY Qty: 5 0RF acetaminophen [Tylenol Extra Strength] 500 mg tablet 1,000 mg PO Q6H PRN (Reason: fever or pain) Qty: 60 0RF ibuprofen 800 mg tablet 800 mg PO TID PRN (Reason: pain) Qty: 30 0RF oseltamivir 75 mg capsule 75 mg PO Q12H 5 Days Qty: 10 0RF Follow-up/Referrals: Lauren Evans MD [Physician, General Surgery] - 1 Week PHYSICIAN,HYDROGEN OPERATOR [Non-Staff, Internal Medicine]
[2025-01-20 07:51] LABS: Hematocrit 47.1 % (42.0-52.0); Hemoglobin 15.6 g/dL (14.0-18.0); Immature Granulocyte Percent A 0.3 % (0-0.5); Lymphocytes Absolute Auto 0.94 K/mm3 (0.9-3.2); Mean Corpuscular HGB Conc 33.1 g/dl (32-36); Mean Corpuscular Hemoglobin 30.0 pg (26-34); Mean Corpuscular Volume 90.6 fl (80-100); Nucleated Red Blood Cells Absolute Auto 0.000 K/mm3 (0.0-0.012); Nucleated Red Blood Cells Perc 0.0 % (0.0-0.2); Platelet Count Result 287 k/mm3 (150-375); Red Blood Count 5.20 M/mm3 (4.6-6.20); White Blood Count 11.8 K/mm3 (4.5-10.0)
[2025-01-20 07:52] LABS: Add Urine Microscopic? NO; Appearance Urine Clear (Clear); Glucose Urine UA Negative (Negative); Leukocyte Esterase Ur Negative LEU/UL (Negative); Nitrate Urine Negative (Negative); Specific Grav Ur 1.025 (1.001-1.035)
[2025-01-20 08:01] LABS: Albumin Level 4.8 g/dL (3.5-5.1); Alkaline Phosphatase 66 U/L (38-126); Anion Gap 6 mmol/L (4-12); Bilirubin,Total 0.5 mg/dL (0.2-1.3); Blood Urea Nitrogen 19 mg/dL (9-20); Calcium 9.5 mg/dL (8.4-10.2); Carbon Dioxide 25 mmol/L (22-30); Chloride 105 mmol/L (98-107); Estimated Glomerular Filt Rate > 60; Glucose 110 mg/dL (65-110); Lipase 99 U/L (23-300); Potassium 4.2 mmol/L (3.4-5.0); Sodium 136 mmol/L (137-145); Total Protein 8.0 g/dL (6.3-8.2)
[2025-01-20 08:11] LABS: Alanine Aminotransferase 40 U/L (6-50); Aspartate Amino Transferase 50 U/L (17-59)
--- OUTSIDE RECORDS SUMMARY | 2025-01-20 08:30 | XMS_ITS | Clinical Summary ---
Author Organization [facility] Address [address] [facility] [place] [address] Phone Care Team Providers Care Director Of Strategic Marketing Name Role Phone Unavailable Primary Care Provider [...]
[2025-01-20] MEDS: KETOROLAC 15 MG/ML VIAL (*BKC) IV PUSH (09:03)
[2025-01-20] MEDS: ACETAMINOPHEN 500 MG TABLET 1000 MG PO (09:03)
[2025-01-20 09:09] VITALS: BP 130/84; PULSE 53; RESP 20; O2SAT 100
--- NOTE | 2025-01-20 09:54 | PC.NURSE ---
Pt denies need for pain meds at this time, NAD, GCS 15, ambulatory to restroom and back
--- NOTE | 2025-01-20 10:53 | P.CONGS_ITS ---
Assessment and Plan Assessment and plan (1) Abdominal pain, RLQ: Code(s): R10.31 - Right lower quadrant pain Status: Acute Assessment and Plan: Patient presented to the ED this morning after having sudden right lower quadrant pain while lifting rebar at work. He had 1 episode of emesis. Labs revealed a white blood cell count of 11.8. Afebrile. CT was insignificant for any acute finding. No signs of acute appendicitis. Upon exam, patient is tender to right lower quadrant with rigid abdomen. I reviewed CT with radiologist who agreed that this is not showing any signs of appendicitis. No visible hernia or other abnormalities. Although early appendicitis was considered as a differential, it is not likely with negative CT findings and immediate onset of pain with lifting and twisting motion. More likely musculoskeletal injury. Patient may return home. Strict return precautions were emphasized to the patient. If he is still experiencing pain in 1-2 weeks he can present to general surgery office for further evaluation. Plan Discussed patient's case and plan of care with Dr. Evans. History of Present Illness Consult details Consult date: 01/20/25 Reason for consult: other (possible appendicitis) Requesting physician: George Perry MD Narrative: Patient is a 34 year old otherwise healthy male who we have been asked to see in surgical consultation for right lower quadrant pain. 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 He states that he was making a lifting and turning motion. 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 He had one episode of emesis and then ultimately decided to present to the ED. Upon arrival, labs revealed WBC count of 11.8. Afebrile. CT of the abdomen and pelvis demonstrated a normal appendix with no other acute findings. Patient continued to have severe pain to RLQ, thus general ssurgery team was consulte to evaluate the patient. During my interview with the patient, he rated the pain at a 4 on a scale of 10. PMFSH Past Medical History Medical History No active medical problems Social History Social History Smoking status: Never smoker Meds Home Medications and Allergies Home Medications ?Medication ?Instructions ?Recorded ?Confirmed ?Type prednisone 20 mg tablet 20 mg PO DAILY #5 tabs 11/08 Rx acetaminophen 500 mg tablet 1,000 mg (2 x 500 mg) PO Q 6H PRN 03/29/23 Rx (Tylenol Extra Strength) fever or pain #60 tabs ibuprofen 800 mg tablet 800 mg PO TID PRN pain #30 t abs 03/29/23 Rx oseltamivir 75 mg capsule 75 mg PO Q12H 5 days #10 cap s 05/01/24 Rx cyclobenzaprine 10 mg tablet 10 mg PO BID PRN muscle s pasm #14 09/22/24 Rx tabs hydrocodone 5 mg-acetaminophen 325 1 tablet PO Q12H SD N pain #14 tabs 09/22/24 Rx mg tablet acetaminophen 500 mg tablet 1,000 mg (2 x 500 mg) PO T ID PRN 01/20/25 Rx iwona 7 days #42 tabs ibuprofen 800 mg tablet 800 mg PO TID PRN pain 7 day s #21 01/20/25 Rx tabs methocarbamol 750 mg tablet 1,500 mg (2 x 750 mg) PO T ID #42 01/20/25 Rx tabs Allergies Allergy/AdvReac Type Severity Reaction Status Date / Time No Known Allergies Allergy Verified 01/20/25 07:32 Vital Signs Vital Signs - 24 hr 01/20/25 07:25 01/20/25 09:09 Temperature 98.3 F Pulse Rate 57 L 53 L Respiratory Rate 20 20 Blood Pressure 134/66 130/84 Pulse Oximetry 100 100 Oxygen Delivery Room Air Exam 2 Const: General: comfortable and no acute distress Eyes: General: appearance normal, both eyes and all related structures Neck: Neck: supple Resp: Effort & Inspection: normal respiratory effort Cardio: Rate: bradycardic GI: Inspection: non-distended GI Palp: Yes Firmness to palpation present (GI), Yes Tenderness to palpation present (GI) (RLQ) and Yes Guarding due to palpation present (GI) Auscultation: normal bowel sounds Extrem: General: normal to inspection Psych: Mental Status: mental status grossly normal Results Labs 01/20/25 07:41 01/20/25 07:41 Labs: Abnormal lab results 01/20/25 Range/Units 07:41 WBC 11.8 H (4.5-10.0) K/mm3 Neut % (Auto) 83.2 H (45.5-73.1) % Lymph % (Auto) 7.9 L (18.3-44.2) % [place] # (Auto) 0.9 H (0.1-0.6) K/mm3 Abs Immat Gran (auto) 0.04 H (0.00-0.031) K/mm3 Absolute Neuts (auto) 9.9 H (1.3-6.7) K/mm3 Sodium 136 L (137-145) mmol/L Urine Ketones Trace H (Negative) mg/dL Diabetes panel 01/20/25 Range/Units 07:41 Sodium 136 L (137-145) mmol/L Potassium 4.2 (3.4-5.0) mmol/L Chloride 105 (98-107) mmol/L Carbon Dioxide 25 (22-30) mmol/L BUN 19 (9-20) mg/dL Creatinine 1.03 (0.7-1.3) mg/dL Glucose 110 (65-110) mg/dL Calcium 9.5 (8.4-10.2) mg/dL AST 50 (17-59) U/L ALT 40 (6-50) U/L Alkaline Phosphatase 66 (38-126) U/L Total Protein 8.0 (6.3-8.2) g/dL Albumin 4.8 (3.5-5.1) g/dL Calcium panel 01/20/25 Range/Units 07:41 Calcium 9.5 (8.4-10.2) mg/dL Albumin 4.8 (3.5-5.1) g/dL Pituitary panel 01/20/25 Range/Units 07:41 Sodium 136 L (137-145) mmol/L Potassium 4.2 (3.4-5.0) mmol/L Chloride 105 (98-107) mmol/L Carbon Dioxide 25 (22-30) mmol/L BUN 19 (9-20) mg/dL Creatinine 1.03 (0.7-1.3) mg/dL Glucose 110 (65-110) mg/dL Calcium 9.5 (8.4-10.2) mg/dL Adrenal panel 01/20/25 Range/Units 07:41 Sodium 136 L (137-145) mmol/L Potassium 4.2 (3.4-5.0) mmol/L Chloride 105 (98-107) mmol/L Carbon Dioxide 25 (22-30) mmol/L BUN 19 (9-20) mg/dL Creatinine 1.03 (0.7-1.3) mg/dL Glucose 110 (65-110) mg/dL Calcium 9.5 (8.4-10.2) mg/dL Total Bilirubin 0.5 (0.2-1.3) mg/dL AST 50 (17-59) U/L ALT 40 (6-50) U/L Alkaline Phosphatase 66 (38-126) U/L Total Protein 8.0 (6.3-8.2) g/dL Albumin 4.8 (3.5-5.1) g/dL All other labs normal.
== END 2025-01-20 11:41 | disposition home or self-care (01) ==
PROVIDERS: Emergency Provider Emergency Medicine
DX: R10.31 Right lower quadrant pain (principal)
CPT/HCPCS: 36415; 74177; 80053; 81003; 83690; 85025; 96361; 96374; 96375; 99284; A9270; J1171; J1885; J2405; J7030; Q9967